=== PATIENT | female | born 1960 | race Caucasian/White ===

== ENCOUNTER 2020-02-15 06:20 | Inpatient (IN) ==
[2020-02-15 07:12] LABS: Basophils % 0.5 %; Eosinophils # 0.1 K/mcL (0.0-0.6); Eosinophils % 1.1 %; Hematocrit 40.5 % (35.3-44.9); Hemoglobin 12.1 g/dL (11.5-15.4); Immature Granulocytes % 0.3 % (0-4); Lymphocytes # 1.9 K/mcL (0.6-4.6); Lymphocytes % 25.3 %; Mean Corpuscular HGB Conc 29.9 g/dL (31.6-35.5); Mean Corpuscular Hemoglobin 25.1 pg (28.0-33.3); Mean Corpuscular Volume 83.9 fL (83.0-100.0); Mean Platelet Volume 10.1 fL (9.4-12.4); Monocytes # 0.9 K/mcL (0.0-1.3); Monocytes % 12.4 %; Neutrophils # 4.5 K/mcL (1.6-8.9); Platelet Count 342 K/mcL (140-400); Red Blood Count 4.83 M/mcL (3.82-4.97); Red Cell Distribution Width 17.8 % (11.5-14.5); Segmented Neutrophils % 60.4 %; White Blood Count 7.4 K/mcL (4.3-11.1)
[2020-02-15 07:19] LABS: INR 0.9; Prothrombin Time 10.2 Seconds (9.4-12.1)
[2020-02-15 07:22] LABS: Activated Partial Thrombo Time 27.4 Seconds (26.0-36.0)
[2020-02-15 07:25] LABS: BUN/Creatinine Ratio 24 (6-26); Blood Urea Nitrogen 22 mg/dL (8-23); Calcium 9.5 mg/dL (8.6-10.3); Carbon Dioxide 29 mEq/L (23-29); Chloride 103 mEq/L (98-107); Glucose 126 mg/dL (70-105); Osmolality,Calculated 297 (280-300); Potassium 3.7 mEq/L (3.5-5.1); Sodium 141 mEq/L (136-145); eGFR For African Americans > 60 (> 60); eGFR For Non-African Americans > 60 (> 60)
[2020-02-15] MEDS ORDERED: Isovue-370 500 ML BOTTLE IVP ONE ×2 (07:26→08:26)
[2020-02-15 07:27] LABS: Troponin I < 0.03 ng/mL (< 0.04)
[2020-02-15 07:28] LABS: Bilirubin,Urine Negative (Negative); Blood,Urine Negative (Negative); Clarity,Urine Cloudy (Clear); Color,Urine Yellow (Yellow); Glucose,Urine (UA) Normal (Normal); Ketones,Urine Negative (Negative); Leukocyte Esterase,Urine Small (Negative); Nitrite,Urine Positive (Negative); PH,Urine 5.5 pH Units (5.0-8.0); Protein,Urine Negative (Neg-Trace); Specific Gravity,Urine 1.024 (1.010-1.025); Urobilinogen,Urine Normal (Normal)
[2020-02-15 07:39] LABS: Bacteria,Urine Moderate per hpf (None-Few); RBC,Urine 0-3 per hpf (0-3); Squamous Epithelial Cell,Urine Few per lpf (None-Few)
[2020-02-15] MEDS ORDERED: *HR* FentaNYL (PF) 100 MCG/2 ML VIAL IVP ONE (07:50)
[2020-02-15] MEDS ORDERED: Lidocaine -MPF 1% 2 ML VIAL ONE (08:08)
[2020-02-15] MEDS ORDERED: cefTRIAXone 1,000 MG in 0.9 % Sodium Chloride Mini Bag 100 ML IVPB ONE (08:41)
[2020-02-15] MEDS ORDERED: *HR* HYDROmorphone (PF) 1 MG/ML SYRINGE IVP ONE (08:45)
[2020-02-15] MEDS ORDERED: MOM Conc 10 ML UD.LIQ PO PRN (10:31)
[2020-02-15] MEDS ORDERED: Acetaminophen 325 MG TABLET PO PRN (10:31)
[2020-02-15] MEDS ORDERED: Naloxone 0.4 MG/ML INJ IVP PRN (10:31)
[2020-02-15] MEDS ORDERED: Mag Hydrox/Al Hydrox/Simeth 30 ML UDC PO PRN (10:31)
[2020-02-15] MEDS ORDERED: Ondansetron ODT 4 MG TAB.RAPDIS SL PRN (10:31)
[2020-02-15] MEDS: *HR* OxyCODONE Immed Rel 5 MG TABLET PO PRN (12:29)
[2020-02-15] MEDS ORDERED: Ipratropium/Albuterol Neb 3 ML IH PRN (13:34)
[2020-02-15] MEDS: Gabapentin 300 MG CAPSULE PO SCH ×3 (14:50→21:10)
[2020-02-15] MEDS: Venlafaxine XR (24 HR) 75 MG CAP.ER.24H PO SCH (14:54)
[2020-02-15] MEDS: *HR* HYDROcodone/Acet 5/325 mg TABLET PO PRN ×2 (14:55→21:11)
[2020-02-15] MEDS: estradioL 1 MG TABLET PO SCH (14:55)
[2020-02-15] MEDS ORDERED: *HR* OxyCODONE Immed Rel 5 MG TABLET PO ONE (16:30)
[2020-02-15] MEDS: Budesonide/Formoterol 80/4.5 1 PUFF INH IH SCH ×2 (16:43→20:19)
[2020-02-16] MEDS: *HR* OxyCODONE Immed Rel 5 MG TABLET PO PRN ×4 (00:57→22:04)
[2020-02-16 04:54] LABS: Hematocrit 35.7 % (35.3-44.9); Hemoglobin 10.8 g/dL (11.5-15.4); Mean Corpuscular HGB Conc 30.3 g/dL (31.6-35.5); Mean Corpuscular Volume 85.8 fL (83.0-100.0); Mean Platelet Volume 10.4 fL (9.4-12.4); Platelet Count 266 K/mcL (140-400); Red Blood Count 4.16 M/mcL (3.82-4.97); Red Cell Distribution Width 17.9 % (11.5-14.5); White Blood Count 10.5 K/mcL (4.3-11.1)
[2020-02-16 05:13] LABS: BUN/Creatinine Ratio 22 (6-26); Blood Urea Nitrogen 16 mg/dL (8-23); Carbon Dioxide 29 mEq/L (23-29); Chloride 100 mEq/L (98-107); Glucose 101 mg/dL (70-105); Magnesium 2.1 mg/dL (1.6-2.6); Osmolality,Calculated 285 (280-300); Potassium 3.5 mEq/L (3.5-5.1); Sodium 137 mEq/L (136-145); eGFR For African Americans > 60 (> 60); eGFR For Non-African Americans > 60 (> 60)
[2020-02-16] MEDS: *HR* HYDROcodone/Acet 5/325 mg TABLET PO PRN ×3 (05:19→19:52)
[2020-02-16] MEDS: Venlafaxine XR (24 HR) 75 MG CAP.ER.24H PO SCH (08:06)
[2020-02-16] MEDS: estradioL 1 MG TABLET PO SCH (08:06)
[2020-02-16] MEDS: cefTRIAXone 1,000 MG in Water for inj. (sterile) 10 ML IVP SCH (08:07)
[2020-02-16] MEDS: Gabapentin 300 MG CAPSULE PO SCH ×3 (08:07→22:04)
[2020-02-16] MEDS ORDERED: lisinopriL 5 MG TABLET PO SCH (09:00)
[2020-02-16] MEDS ORDERED: (Terbinafine Hcl [Terbinafine Hcl] 250 MG) PO SCH (09:00)
[2020-02-16] MEDS: Budesonide/Formoterol 80/4.5 1 PUFF INH IH SCH ×2 (10:09→20:00)
[2020-02-16] MEDS: *HR* Heparin 5,000 UNIT/ML VIAL SQ SCH ×2 (15:40→18:48)
[2020-02-17] MEDS: *HR* HYDROcodone/Acet 5/325 mg TABLET PO PRN ×2 (01:55→09:22)
[2020-02-17 03:55] LABS: Basophils % 0.3 %; Eosinophils # 0.1 K/mcL (0.0-0.6); Eosinophils % 1.4 %; Hemoglobin 9.4 g/dL (11.5-15.4); Immature Granulocytes % 0.3 % (0-4); Lymphocytes # 1.8 K/mcL (0.6-4.6); Lymphocytes % 20.2 %; Mean Corpuscular HGB Conc 30.3 g/dL (31.6-35.5); Mean Corpuscular Hemoglobin 25.5 pg (28.0-33.3); Monocytes # 1.5 K/mcL (0.0-1.3); Monocytes % 16.5 %; Neutrophils # 5.4 K/mcL (1.6-8.9); Platelet Count 216 K/mcL (140-400); Red Blood Count 3.69 M/mcL (3.82-4.97); Red Cell Distribution Width 17.6 % (11.5-14.5); Segmented Neutrophils % 61.3 %; White Blood Count 8.8 K/mcL (4.3-11.1)
[2020-02-17 04:13] LABS: BUN/Creatinine Ratio 22 (6-26); Blood Urea Nitrogen 21 mg/dL (8-23); Calcium 8.8 mg/dL (8.6-10.3); Carbon Dioxide 27 mEq/L (23-29); Chloride 97 mEq/L (98-107); Glucose 93 mg/dL (70-105); Osmolality,Calculated 279 (280-300); Potassium 3.5 mEq/L (3.5-5.1); Sodium 133 mEq/L (136-145); eGFR For African Americans > 60 (> 60); eGFR For Non-African Americans > 60 (> 60)
[2020-02-17] MEDS: *HR* Heparin 5,000 UNIT/ML VIAL SQ SCH ×2 (05:54→16:37)
[2020-02-17] MEDS: *HR* OxyCODONE Immed Rel 5 MG TABLET PO PRN (06:19)
[2020-02-17] MEDS: Venlafaxine XR (24 HR) 75 MG CAP.ER.24H PO SCH (07:39)
[2020-02-17] MEDS: estradioL 1 MG TABLET PO SCH (07:39)
[2020-02-17] MEDS: cefTRIAXone 1,000 MG in Water for inj. (sterile) 10 ML IVP SCH (07:40)
[2020-02-17] MEDS: Gabapentin 300 MG CAPSULE PO SCH ×3 (07:40→21:11)
[2020-02-17 08:51] LABS: % Iron Saturation 7 % (15-50); Iron 30 mcg/dL (50-170); Transferrin 321 mg/dL (203-362)
[2020-02-17 09:17] LABS: Folate 10.3 ng/mL (3.0-16.0)
[2020-02-17] MEDS: Budesonide/Formoterol 80/4.5 1 PUFF INH IH SCH ×2 (09:22→19:40)
[2020-02-17] MEDS ORDERED: *HR* Promethazine 25 MG/ML VIAL IVP PRN (09:27)
[2020-02-17] MEDS ORDERED: *HR* OxyCODONE Immed Rel 5 MG TABLET PO PRN ×2 (09:27→13:11)
[2020-02-17] MEDS ORDERED: *HR* HYDROmorphone PF 0.5 MG/0.5 ML SYRINGE IVP PRN (09:27)
[2020-02-17] MEDS ORDERED: *HR* Labetalol 20 MG/4 ML SYRINGE IVP PRN ×2 (09:27→13:11)
[2020-02-17] MEDS ORDERED: Ondansetron 4 MG/2 ML VIAL IVP ONE ×2 (09:27→13:11)
[2020-02-17] MEDS ORDERED: *HR* Rocuronium Bromide 50 MG/5 ML VIAL ONE (10:02)
[2020-02-17] MEDS ORDERED: *HR* FentaNYL (PF) 100 MCG/2 ML VIAL ONE ×2 (10:02→11:41)
[2020-02-17] MEDS ORDERED: *HR* Propofol 200 MG/20 ML VIAL IVP ONE (10:02)
[2020-02-17] MEDS ORDERED: Dexamethasone 4 MG/ML VIAL ONE (10:02)
[2020-02-17] MEDS ORDERED: Ondansetron 4 MG/2 ML VIAL ONE (10:02)
[2020-02-17] MEDS ORDERED: *HR* Midazolam HCl 2 MG/2 ML VIAL ONE (10:02)
[2020-02-17] MEDS ORDERED: Lidocaine -MPF 2% 2 ML VIAL ONE (10:02)
[2020-02-17] MEDS ORDERED: Lidocaine -MPF 4% 5 ML AMPUL ONE (10:02)
[2020-02-17] MEDS ORDERED: *HR* PHENYLEPHRINE 1,000 MCG/10 ML SYRINGE IVP ONE (11:03)
[2020-02-17] MEDS ORDERED: Acetaminophen 325 MG TABLET PO PRN (13:11)
[2020-02-17] MEDS ORDERED: Naloxone 0.4 MG/ML INJ IVP PRN (13:11)
[2020-02-17] MEDS ORDERED: Mag Hydrox/Al Hydrox/Simeth 30 ML UDC PO PRN (13:11)
[2020-02-17] MEDS ORDERED: MOM Conc 10 ML UD.LIQ PO PRN (13:11)
[2020-02-17] MEDS ORDERED: Ondansetron ODT 4 MG TAB.RAPDIS SL PRN (13:11)
[2020-02-17] MEDS ORDERED: Ipratropium/Albuterol Neb 3 ML IH PRN (13:11)
[2020-02-17] MEDS: *HR* HYDROmorphone PF 0.5 MG/0.5 ML SYRINGE IVP PRN ×2 (14:20→19:43)
[2020-02-17] MEDS: *HR* Promethazine 25 MG/ML VIAL IVP PRN (19:44)
[2020-02-18] MEDS: *HR* OxyCODONE Immed Rel 5 MG TABLET PO PRN ×3 (00:20→17:09)
[2020-02-18] MEDS: *HR* HYDROcodone/Acet 5/325 mg TABLET PO PRN ×3 (03:00→19:54)
[2020-02-18] MEDS: *HR* Promethazine 25 MG/ML VIAL IVP PRN (03:53)
[2020-02-18] MEDS: *HR* HYDROmorphone PF 0.5 MG/0.5 ML SYRINGE IVP PRN (03:53)
[2020-02-18] MEDS: *HR* Heparin 5,000 UNIT/ML VIAL SQ SCH ×2 (05:39→17:09)
[2020-02-18 07:13] LABS: Basophils % 0.1 %; Eosinophils % 0.1 %; Hematocrit 32.9 % (35.3-44.9); Hemoglobin 9.9 g/dL (11.5-15.4); Immature Granulocytes % 0.4 % (0-4); Lymphocytes # 0.9 K/mcL (0.6-4.6); Lymphocytes % 8.8 %; Mean Corpuscular HGB Conc 30.1 g/dL (31.6-35.5); Mean Corpuscular Hemoglobin 25.7 pg (28.0-33.3); Mean Corpuscular Volume 85.5 fL (83.0-100.0); Mean Platelet Volume 10.4 fL (9.4-12.4); Monocytes # 1.1 K/mcL (0.0-1.3); Monocytes % 10.5 %; Neutrophils # 8.1 K/mcL (1.6-8.9); Platelet Count 249 K/mcL (140-400); Red Blood Count 3.85 M/mcL (3.82-4.97); Red Cell Distribution Width 17.8 % (11.5-14.5); Segmented Neutrophils % 80.1 %; White Blood Count 10.1 K/mcL (4.3-11.1)
[2020-02-18 07:33] LABS: BUN/Creatinine Ratio 27 (6-26); Blood Urea Nitrogen 20 mg/dL (8-23); Calcium 9.1 mg/dL (8.6-10.3); Carbon Dioxide 33 mEq/L (23-29); Chloride 102 mEq/L (98-107); Glucose 111 mg/dL (70-105); Osmolality,Calculated 291 (280-300); Potassium 4.3 mEq/L (3.5-5.1); Sodium 139 mEq/L (136-145); eGFR For African Americans > 60 (> 60); eGFR For Non-African Americans > 60 (> 60)
[2020-02-18] MEDS: Venlafaxine XR (24 HR) 75 MG CAP.ER.24H PO SCH (07:44)
[2020-02-18] MEDS: estradioL 1 MG TABLET PO SCH (07:44)
[2020-02-18] MEDS: Gabapentin 300 MG CAPSULE PO SCH ×3 (07:45→19:54)
[2020-02-18] MEDS: lisinopriL 5 MG TABLET PO SCH (07:45)
[2020-02-18] MEDS: Budesonide/Formoterol 80/4.5 1 PUFF INH IH SCH ×2 (08:05→20:00)
[2020-02-18] MEDS ORDERED: cefTRIAXone 1,000 MG in Water for inj. (sterile) 10 ML IVP SCH (09:00)
[2020-02-19] MEDS: *HR* Heparin 5,000 UNIT/ML VIAL SQ SCH (05:35)
[2020-02-19] MEDS: *HR* HYDROcodone/Acet 5/325 mg TABLET PO PRN (05:38)
[2020-02-19 07:39] VITALS: BP 111/70
[2020-02-19] MEDS: Budesonide/Formoterol 80/4.5 1 PUFF INH IH SCH (07:40)
[2020-02-19] MEDS: estradioL 1 MG TABLET PO SCH (08:15)
[2020-02-19] MEDS: Gabapentin 300 MG CAPSULE PO SCH (08:16)
[2020-02-19] MEDS: Venlafaxine XR (24 HR) 75 MG CAP.ER.24H PO SCH (08:16)
[2020-02-19] MEDS: lisinopriL 5 MG TABLET PO SCH (08:17)
== END 2020-02-19 10:25 | disposition home or self-care (01) | DRG 163 ==
LOC: 3NENU 06:20 → EMEROOARM 06:20 → SUATTDRO 10:26 → 3NENU 11:59 → SUATTDRO 02-16 15:18 → 2ANU 02-18 18:22
PROVIDERS: ADMIT Internal Medicine; ATTEND Internal Medicine